=== PATIENT | female | born 1995 | race Caucasian/White ===

== ENCOUNTER 2021-02-08 15:22 | Emergency (ER) | payer OTHER, SELFPAY ==
[2021-02-08 15:28] VITALS: BP 134/90; PULSE 88; RESP 20; TEMP 36.6; O2SAT 100
--- NOTE | 2021-02-08 15:39 | ED.LOWEXIN ---
HPI - Extremity Injury (Lower) General Chief Complaint: Skin/Abscess/Foreign Body Stated Complaint: right big toenail Time Seen by Provider: 02/08/21 15:42 Source: patient Mode of arrival: ambulatory Limitations: no limitations History of Present Illness HPI Narrative: Patient presents with pain to her right great toenail. Patient states 3 days ago she kicked the bed frame and has had pain and discomfort to her toe ever since. Patient has had several surgeries on her toenail and had it removed once by caser up. No deformity slightly tender to touch no drainage. Injury: Right: foot Place: home Severity: mild Relieving factors: nothing Exacerbating factors: nothing Context: direct blow Related Data Allergies Allergy/AdvReac Type Severity Reaction Status Date / Time No Known Allergies Allergy Verified 02/08/21 15:40 Review of Systems Review of Systems: Narrative: CONSTITUTIONAL: Denies fever, chills, or sweats. EYES: Denies visual changes, redness, or discharge. ENT: Denies rhinorrhea, congestion, sore throat, or otalgia. CARDIOVASCULAR: Denies chest pain, palpitations, or edema. RESPIRATORY: Denies cough or dyspnea. GASTROINTESTINAL: Denies abdominal pain, nausea, vomiting, or diarrhea. GENITOURINARY: Denies dysuria or hematuria. SKIN: Denies rash or itching. MUSCULOSKELETAL: Denies back pain, joint pain, or myalgia. NEUROLOGIC: Denies headache, numbness, or weakness. PSYCHIATRIC: Denies anxiety or depression. [facility] Family History Family History (Updated 05/28/14 @ 07:13 by DOCTOR UNKNOWN) Mother Hypertension Social History Social History Smoking status: Never smoker Alcohol intake: never Comments At time of signature, agree with nursing past medical, surgical, social and family history. There is no relevant family history pertinent to the presenting complaint Exam Narrative: Exam Narrative: GENERAL: Well-appearing, well-nourished, and in no acute distress. HEAD: Normocephalic, atraumatic. EYES: PERRLA and EOMI. ENT: Nares clear, no rhinorrhea or epistaxis. Mucous membranes moist. NECK: Supple. CHEST: Clear to auscultation. No respiratory distress. HEART: Regular rate and rhythm. No murmur heard. Normal peripheral pulses. ABDOMEN: Soft, nontender, nondistended, normal active bowel sounds. EXTREMITIES: Normal range of motion. No edema. SKIN: Warm, dry, no rash. sWELLING AND REDNESS AND FLUCTUANCE CONSISTENT WITH PARONYCHIA. NORMAL CAP REFILL. NORMAL SENSATION OF DISTAL TOE. NORMAL 2 POINT DISCRIMINATION. NORMAL MOVEMENT OF TOE AT PIP, DIP, MCP. NORMAL FOOT EXAM. NO STREAKING OR REDNESS INTO FOOT NEURO: No focal deficits. Alert and oriented x3. [place] Coma Scale Eye Opening: Spontaneous 4 [place] Coma Scale Motor: Obeys Commands 6 [place] Coma Scale Verbal: Oriented 5 [place] Coma Scale Total 15 Course Vital Signs Vital signs: Vital Signs Temperature 36.6 C 02/08/21 15:28 Pulse Rate 88 02/08/21 15:28 Respiratory Rate 20 02/08/21 15:28 Blood Pressure 134/90 02/08/21 15:28 Pulse Oximetry 100 02/08/21 15:28 Temperature 36.6 C 02/08/21 15:28 Pulse Rate 88 02/08/21 15:28 Respiratory Rate 20 02/08/21 15:28 Blood Pressure 134/90 02/08/21 15:28 Pulse Oximetry 100 02/08/21 15:28 Please ANTONIO schedule a followup visit with your personal physician for further evaluation and treatment. Including recheck and discussion of your blood pressure. If your symptoms persist, change or worsen significantly before you can contact your personal physician then please, without delay, go to the emergency department for further evaluation MDM - Extremity Injury (Lower) Differential Diagnosis Differential diagnosis: Likely puncture wound of foot and fracture of toe Critical Care Time Critical Care Time Critical Care Time: No Discharge Plan Discharge Clinical Impression: Paronychia of great toe Patient Disposition: Home, Self-Care Condition: Stable Instructions
== END 2021-02-08 15:45 | disposition home or self-care (01) ==
PROVIDERS: Emergency Provider Nurse Practitioner Family
DX: L03.031 Cellulitis of right toe (principal)
CPT/HCPCS: 99213; G0463

== ENCOUNTER 2021-10-08 12:58 | Emergency (ER) | payer OTHER, SELFPAY ==
[2021-10-08 13:17] VITALS: BP 137/79; PULSE 62; RESP 16; TEMP 36.7; O2SAT 99
--- NOTE | 2021-10-08 13:57 | ED.URI ---
HPI - URI/Sore Throat General Chief Complaint: Upper Respiratory Infection Stated Complaint: stomach pain,headache,alis Time Seen by Provider: 10/08/21 13:57 Source: patient and family Mode of arrival: ambulatory History of Present Illness HPI Narrative: Patient presents with a 2-day history of nausea, no emesis. Patient states today she started with a headache and generalized body aches. Patient did have COVID-19 June 2021 . Patient denies any abdominal pain no constipation no diarrhea. Patient states she has several coworkers that are out sick but as far she knows no one is tested positive for pain. MD elicited complaint: sore throat and nasal congestion Relieving factors: nothing Associated symptoms: headache, nasal congestion, sore throat and nausea Treatments prior to arrival: none Related Data Home Medications Medication Instructions Recorded Confirmed albuterol sulfate 2 puff INHALATION Q4-6H PRN 10/08/21 10/08/21 beclomethasone dipropionate [Qvar 2 inh INHALATION BID 10/08/21 10/08/21 RediHaler] famotidine 40 mg PO DAILY 10/08/21 10/08/21 Allergies Allergy/AdvReac Type Severity Reaction Status Date / Time No Known Allergies Allergy Verified 10/08/21 13:42 Review of Systems Review of Systems: CONSTITUTIONAL: Denies chills, or sweats. Reports fever and generalized body aches EYES: Denies visual changes, redness, or discharge. ENT: Denies otalgia. Reports nasal congestion runny nose and sore throat CARDIOVASCULAR: Denies chest pain, palpitations, or edema. RESPIRATORY: Denies dyspnea. Reports occasional cough GASTROINTESTINAL: Denies abdominal pain, nausea, vomiting, or diarrhea. GENITOURINARY: Denies dysuria or hematuria. SKIN: Denies rash or itching. MUSCULOSKELETAL: Denies back pain, joint pain, or myalgia. Reports generalized body aches NEUROLOGIC: Denies headache, numbness, or weakness. PSYCHIATRIC: Denies anxiety or depression. [facility] Family History Family History (Updated 05/28/14 @ 07:13 by DOCTOR UNKNOWN) Mother Hypertension Social History Social History Smoking status: Never smoker Alcohol intake: never Comments At time of signature, agree with nursing past medical, surgical, social and family history. There is no relevant family history pertinent to the presenting complaint Exam Narrative: The patient is a well-developed, well-nourished in no acute distress. SKIN: Skin is warm and dry without erythema, swelling or exudate. There is good turgor. No tenting. HEAD: Atraumatic. Normocephalic. No temporal or scalp tenderness. EYES: Moist and bright. Sclera and conjunctivae normal. No discharge. PERRLA. Extraocular motions intact. Gross visual acuity intact. EARS: Pinna is normal shape and contour. Clear external auditory canals. TM pearly zavala with good cone of light, no erythema or suppuration. Bilateral cerumen noted no gross hearing deficit. NOSE: pink, moist mucosa with good air movement. Clear rhinorrhea without nasal flaring. Septum midline. Mouth: moist mucous membranes. THROAT; mild erythema noted to posterior oropharynx with moderate postnasal drainage. Without exudate or ulceration.. Uvula midline. Normal movement of soft palate. NECK: Supple and nontender with full range of motion without discomfort. No meningeal signs. LUNGS: Equal and bilateral breath sounds without wheezes, rales or rhonchi. CHEST: The chest wall is without retractions or use of accessory muscles. HEART: Has a regular rate and rhythm without murmur, gallops, click or rub. ABDOMEN: Soft, nontender with positive active bowel sounds. No rebound tenderness. EXTREMITIES: Without cyanosis, clubbing or edema. Equal 2+ distal pulses and 2 second capillary refill noted. NEUROLOGIC: alert, active, . The patient moves all extremities with normal muscle strength. Normal muscle tone is noted. Normal coordination is noted. NO focal neurological findings noted. Course Course Level of Care: Express Care Visit
== END 2021-10-08 14:20 | disposition home or self-care (01) ==
PROVIDERS: Emergency Provider Nurse Practitioner Family
DX: R51.9 Headache, unspecified (principal); J06.9 Acute upper respiratory infection, unspecified; J02.9 Acute pharyngitis, unspecified; B34.9 Viral infection, unspecified; R11.0 Nausea; Z20.822 Contact with and (suspected) exposure to COVID-19; Z86.16 Personal history of COVID-19
CPT/HCPCS: 87081; 87804; 87880; 99213; G0463

== ENCOUNTER 2023-05-02 11:44 | Emergency (ER) | payer OTHER, SELFPAY ==
--- NOTE | 2023-05-02 11:47 | ED.URI ---
HPI - URI/Sore Throat General Chief Complaint: Upper Respiratory Infection Stated Complaint: chest heavy / hard to breathe Source: patient and RN notes reviewed Mode of arrival: ambulatory Limitations: no limitations History of Present Illness HPI Narrative: Patient is a 27-year-old who presents to the [facility] with complaints of chest heaviness and tightness starting yesterday. Patient also reports some intermittent wheezing. She denies recent cough, illness, or fever. She reports some mild shortness of breath due to the chest tightness. She reports history of asthma. States that she has not been taking any of her medications for asthma in over 8 months as she ran out and has not made an appointment with her primary. Related Data Allergies Allergy/AdvReac Type Severity Reaction Status Date / Time No Known Allergies Allergy Verified 05/02/23 12:02 Review of Systems Review of Systems: CONSTITUTIONAL: Denies fever, chills, or sweats. EYES: Denies visual changes, redness, or discharge. ENT: Denies otalgia and sore throat CARDIOVASCULAR: Denies chest pain, palpitations, or edema. RESPIRATORY: Reports chest tightness, shortness of breath, and wheezing. Denies cough. GASTROINTESTINAL: Denies abdominal pain, nausea, vomiting, or diarrhea. GENITOURINARY: Denies dysuria or hematuria. SKIN: Denies rash or itching. MUSCULOSKELETAL: Denies back pain, joint pain, or myalgia. NEUROLOGIC: Denies headache, numbness, or weakness. Pertinent positives per HPI. PMFSH Family History Family History Mother Hypertension Social History Social History Smoking status: Never smoker Alcohol intake: never Comments At the time of my signature, I reviewed and agree with the nursing past medical, surgical, social, and family history. There is no relevant family history pertinent to the patient complaint. Exam Narrative: GENERAL: This is a well-nourished, well-developed patient, in no apparent distress. HEAD: normocephalic, atraumatic. EYES: Sclera clear/white. Vision is grossly intact. EARS: External ears normal. Hearing grossly intact. NOSE: External nose normal with no obvious nasal discharge, nares without redness, no rhinorrhea. THROAT: Mucous membranes moist, posterior pharynx clear. NECK: Neck supple, non-tender without lymphadenopathy, masses or thyromegaly. CARDIOVASCULAR: Regular rate and rhythm without murmurs, gallops, or rubs. RESPIRATORY: Decreased breath sounds. Diffuse bilateral wheezing thoroughout. GASTROINTESTINAL: Abdomen soft, non-tender, nondistended. Bowel sounds are active. No hepato-splenomegaly, or palpable masses. No guarding. SKIN: warm, intact with no suspicious lesions or rash, good texture and turgor. NEURO: awake, alert, and oriented to person, place and time. There were no obvious focal neurologic abnormalities. EXTREMITIES: No clubbing, cyanosis, or edema. No joint tenderness, effusion, or edema noted. BACK: Nontender without deformity or crepitance. No flank tenderness. Course Course Level of Care: Express Care Visit Vital Signs Vital signs: Vital Signs Temperature 97.4 F L 05/02/23 11:54 Pulse Rate 69 05/02/23 11:54 Respiratory Rate 20 05/02/23 11:54 Blood Pressure 166/100 H 05/02/23 11:54 Pulse Oximetry 99 05/02/23 11:54 Oxygen Delivery Room Air 05/02/23 11:54 Temperature 97.4 F L 05/02/23 11:54 Pulse Rate 69 05/02/23 11:54 Respiratory Rate 20 05/02/23 11:54 Blood Pressure 166/100 H 05/02/23 11:54 Pulse Oximetry 99 05/02/23 11:54 Oxygen Delivery Room Air 05/02/23 11:54 Reviewed MDM - URI/Sore Throat MDM Narrative Medical decision making narrative: Do not smoke. Avoid smoke of any kind. May use a humidifier in the bedroom. Get plenty of fluids and rest. Take steroids as directed. Use your inhaler every 4-6 hours if needed. F
[2023-05-02 11:54] VITALS: BP 166/100; PULSE 69; RESP 20; TEMP 36.3; O2SAT 99
[2023-05-02] MEDS: ALBUTEROL SULFATE NEB 2.5 MG/3 ML INH INHALATION (12:14)
[2023-05-02] MEDS: IPRATROPIUM BR 0.02% INH SOLN 0.5 MG/2.5 ML VIAL INHALATION (12:14)
== END 2023-05-02 12:45 | disposition home or self-care (01) ==
PROVIDERS: Emergency Provider Nurse Practitioner
DX: J45.21 Mild intermittent asthma with (acute) exacerbation (principal); Z86.16 Personal history of COVID-19
CPT/HCPCS: 94640; 99213; G0463

== ENCOUNTER 2023-11-26 14:12 | Emergency (ER) | payer OTHER, SELFPAY ==
[2023-11-26 14:18] VITALS: BP 134/89; PULSE 68; RESP 20; TEMP 36.9; O2SAT 99
--- NOTE | 2023-11-26 14:31 | ED.GENADULT ---
HPI - General Adult General Chief complaint: Upper Respiratory Infection Stated complaint: Shortness of Breath/Cough/Headache Source: patient, RN notes reviewed and old records reviewed Mode of arrival: ambulatory Limitations: no limitations History of Present Illness HPI narrative: 28-year-old female presents to Express Care with complaint of cough, congestion, rhinorrhea, headache, shortness of breath that started yesterday. Patient states does have asthma and is out of inhaler at this time. But states this does not feel like her asthma. Related Data Home Medications Medication Instructions Recorded Confirmed albuterol sulfate 90 mcg/actuation See Rx Instructions .Route 11/26/23 11/26/23 aerosol inhaler .COMPLEX PRN sob Allergies Allergy/AdvReac Type Severity Reaction Status Date / Time No Known Allergies Allergy Verified 11/26/23 14:39 Review of Systems Constitutional: Constitutional: Reports no additional constitutional complaints, Denies body ache(s), Denies chills, Denies fatigue, Denies fever(s) and Reports headache(s) Eyes: Eyes: Reports no additional eye complaints and Denies blurry vision ENT: Reports system reviewed and no additional complaints, except as documented, Denies vertigo, Denies dizziness, Denies ear discharge, Denies otalgia, Denies facial pain, Denies headache(s), Reports nasal congestion, Reports nasal discharge, Denies sinus pain, Reports sinus pressure and Denies sore throat Cardiovascular: Cardiovascular: Reports no additional cardiovascular complaints, Denies chest pain, Denies chest pain at rest, Denies rapid heart rate and Denies dyspnea Respiratory: Respiratory: Reports no additional respiratory complaints, Reports chest congestion, Reports cough, Denies pain on inspiration, Denies pain with cough and Denies dyspnea Gastrointestinal: Gastrointestinal: Denies abdominal pain, Denies diarrhea, Denies nausea and Denies vomiting Integumentary/Breasts: Skin/Breast: Denies rash Neurologic: Reports system reviewed and no additional complaints, except as documented, Denies vertigo, Denies dizziness and Denies headache(s) Endocrine: Endocrine: Denies fatigue PMFSH Family History Family History Mother Hypertension Social History Social History Smoking status: Never smoker Alcohol intake: never Comments At the time of my signature, I reviewed and agree with the nursing past medical, surgical, social, and family history. There is no relevant family history pertinent to the patient complaint. Exam Const: General: cooperative, healthy appearing, no acute distress and well nourished Nutritional Appearance: well nourished Orientation/consciousness: patient oriented x3 Limitations: no limitations HENMT: Head: normal to inspection and normocephalic Ears: external ears normal Face/Nose/Sinus: Normal nasal mucous membranes and turbinates present, normal facial exam and sinuses nontender Face and sinus: normal facial exam Mouth: Yes Normal oral and palatal mucosa present, Yes oropharynx normal and Yes moist mucous membranes Throat: tonsils normal, uvula midline, normal tonsils, no peritonsillar masses, normal posterior oropharynx, postnasal drainage and no uvular edema Eyes: General: appearance normal, both eyes and all related structures Sclera: sclerae normal Pupils: Equal, round and reactive pupils present Resp: Effort & Inspection: normal respiratory effort, able to speak in complete sentences, no audible wheezes, no cough, no respiratory distress and no retractions Auscultation: clear to auscultation bilaterally, no crackles, no rales, no rhonchi and no wheezes Cardio: Rate: regular rate Rhythm: regular rhythm Skin: General skin exam: normal color and no rashes or lesions noted Neuro: General: patient oriented x3 Cranial nerves: Yes Equal, round and reactive pupils
== END 2023-11-26 14:55 | disposition home or self-care (01) ==
PROVIDERS: Emergency Provider Registered Nurse
DX: J06.9 Acute upper respiratory infection, unspecified (principal); J45.20 Mild intermittent asthma, uncomplicated; Z20.822 Contact with and (suspected) exposure to COVID-19
CPT/HCPCS: 87426; 87804; 99213; G0463

== ENCOUNTER 2025-06-02 15:09 | Emergency (ER) | payer OTHER, SELFPAY ==
--- NOTE | 2025-06-02 15:12 | ED_ITS ---
HPI - Dental/Oral General Chief complaint: Dental/Oral Stated complaint: bubble on gum Time Seen by Provider: 06/02/25 15:12 Source: patient Mode of arrival: ambulatory Limitations: no limitations History of Present Illness HPI Narrative: Phyllis is a 29-year-old female patient presenting to the clinic today with complaints of a a possible dental abscess to the left upper tooth. She reports she noticed swelling and pain over the area for the past 4 days however yesterday she noticed a possible abscess. States the area is mildly fluctuant. Denies any fevers, chills, body aches. Related Data Home Medications ?Medication ?Instructions ?Recorded ?Confirmed ?Last Taken ?Type albuterol sulfate 90 mcg/actuation See Rx Instructions .Route 11/26/23 11/26/23 Unknown History aerosol inhaler .COMPLEX PRN sob ergocalciferol (vitamin D2) 1,250 06/02/25 Unknown H istory mcg (50,000 unit) capsule famotidine 40 mg tablet mg 06/02/25 Unknown History losartan 100 tablet 06/02/25 Unknown His tory mg-hydrochlorothiazide 25 mg tablet metformin 500 mg tablet mg 06/02/25 Unknown History Allergies Allergy/AdvReac Type Severity Reaction Status Date / Time No Known Allergies Allergy Verified 06/02/25 15:24 Review of Systems Review of Systems: Pertinent positives per HPI. Patient denies any fever, chills, rash, headache, visual changes, dizziness, cough, runny nose, sore throat, shortness of breath, chest pain, palpitations, nausea, vomiting, diarrhea, constipation, abdominal pain, or any urinary issues. PMFSH Family History Family History Mother Hypertension Social History Social History Smoking status: Never smoker Alcohol intake: never Comments At the time of my signature, I reviewed and agree with the nursing past medical, surgical, social, and family history. There is no relevant family history pertinent to the patient complaint. Exam Narrative: General: Well-developed, well nourished, in no apparent distress Head: Normocephalic, atraumatic Eyes: Pupils equally round and reactive to light bilaterally, EOM intact, sclera and conjunctive clear, no discharge, lids normal Ears: TMs intact and clear, ear canals clear, no drainage, grossly hearing normal. Nose: Nares patent, no discharge, no inflammation, no sinus tenderness. Mouth: Oropharynx without lesions or masses, poor dentition, MMM. Small dental abscess to the 12. Mildly fluctuant. Neck: Supple, trachea midline, no enlargement of anterior or posterior cervical nodes, no thyroid masses or goiter palpable. Cardio: Regular rate and rhythm, s1 and s2 normal, no murmur appreciated. Resp: Clear to auscultation bilaterally anteriorly and posteriorly, no rhonchi, rales, wheezing or rubs Course Course Emergency Course: Portions of this record may have been created with voice recognition software. Level of Care: Express Care Visit Vital Signs Vital signs: Vital Signs Temperature 36.3 C L 06/02/25 15:16 Pulse Rate 68 06/02/25 15:16 Respiratory Rate 20 06/02/25 15:16 Blood Pressure 135/85 06/02/25 15:16 Pulse Oximetry 100 06/02/25 15:16 Oxygen Delivery Room Air 06/02/25 15:16 Temperature 36.3 C L 06/02/25 15:16 Pulse Rate 68 06/02/25 15:16 Respiratory Rate 20 06/02/25 15:16 Blood Pressure 135/85 06/02/25 15:16 Pulse Oximetry 100 06/02/25 15:16 Oxygen Delivery Room Air 06/02/25 15:16 Vital signs reviewed MDM - Dental/Oral MDM Narrative Medical decision making narrative: At the time of visit patient is resting comfortably on the exam table. Patient appears to be nontoxic. Complaints of a a possible dental abscess to the left upper tooth. She reports she noticed swelling and pain over the area for the past 4 days however yesterday she noticed a possible abscess. States the area is mildly fluctuant. Denies any fevers, chills, body aches. On exam patient has a very small abscess to the left upper tooth number 12. Offer to drain dental abscess and patient declined. Plan: I suspect patient has a dental abscess. Prescription for Augmentin was sent to the pharmacy. Supportive measures were discussed with the patient and they voiced understanding discharge instructions and agrees to treatment plan. Return precautions reviewed Differential Diagnosis Differential diagnosis: Likely gingival abscess, dental caries, toothache, dental abscess, fracture of tooth and aphthous ulcer Discharge Plan Discharge Clinical Impression: Dental abscess Patient Disposition: Home Condition: Stable Instructions: Antibiotic Form, Dental Abscess (ED) Additional Instructions: Take medications as prescribed-Augmentin Increase fluids and stay well hydrated May take Tylenol/Motrin as needed for pain or fever May apply Orajel to the affected area to help alleviate pain May apply warm or cool compress to the affected area to help alleviate pain Follow-up with your dentist as soon as possible Patient Language: German Prescriptions: New amoxicillin-pot clavulanate 875-125 mg tablet 1 tablet PO Q12H 10 Days Qty: 20 0RF No Action albuterol sulfate 90 mcg/actuation HFA aerosol inhaler See Rx Instructions .ROUTE .COMPLEX PRN (Reason: sob) Rx Instructions: as prescribed albuterol sulfate 90 mcg/actuation HFA aerosol inhaler 2 puff inhalation Q4-6H PRN (Reason: shortness of breath or wheezing) Qty: 8.5 0RF metformin 500 mg tablet famotidine 40 mg tablet losartan-hydrochlorothiazide 100-25 mg tablet ergocalciferol (vitamin D2) 1,250 mcg (50,000 unit) capsule Follow-up/Referrals: UNKNOWN,DOCTOR [Non-Staff] Time of Disposition: 15:34 Quality NIHSS Nursing Documentation ED NIHSS nursing documentation: reviewed/agree
[2025-06-02 15:16] VITALS: BP 135/85; PULSE 68; RESP 20; TEMP 36.3; O2SAT 100
--- OUTSIDE RECORDS SUMMARY | 2025-06-02 15:19 | XMS_ITS | Clinical Summary ---
Author Organization [facility] Address [address] [place] [address] Phone Care Team Providers Care Treating Machine Operator Name Role Phone Edwar Benavides APRN, FAMILY COACH Primary Care Pr ovider Clive Tilley MD Unavailable Allergies No known active allergies Medications albuterol 108 (90 Base) MCG/ACT Aerosol SolutionIndicatio ns:Moderate persistent asthma without complication take 2 Puffs by inhalation every 6 hours as needed for Wheezing. 18 g 5 4 Active famotidine (Pepcid) 40 MG TabletIndications :Gastroesophageal reflux disease without esophagitis Take 1 Tablet by mouth every evening. 90 Tablet 3 4 Active fluticasone (Flovent HFA) 110 MCG/ACT AerosolIndication s:Moderate persistent asthma without complication take 2 Puffs by inhalation 2 times daily. 12 g 5 4 Active losartan potassium-hydroch lorothiazide (HYZAAR) 100-25 MG TabletIndications :Primary hypertension Take 1 Tablet by mouth daily. 90 Tablet 3 5 Active metFORMIN (GLUCOPHAGE) 500 MG TabletIndications :Moderate persistent asthma without complication Take 1 Tablet by mouth 2 times daily (with meals). 180 Tablet 3 5 Active ergocalciferol (VITAMIN D) 20899 UNIT CapsuleIndication s:Vitamin D insufficiency Take 1 Capsule by mouth once a week. 12 Capsule Active Active Problems Problem Noted Date Diagnosed Date Psoriasis 03/19/2025 Periumbilical hernia 03/16/2025 PCOS (polycystic ovarian syndrome) 02/05/2025 Vitamin D insufficiency 01/29/2025 Primary hypertension 12/04/2024 GERD (gastroesophageal reflux disease) Morbid obesity with BMI of 50.0-59.9, adult 06/03 Asthma 06/30/2021 COVID-19 virus infection 06/30/2021 Acquired stenosis of both external ear canals Resolved Problems Problem Noted Date Diagnosed Date Resolved Date Acute respiratory failure with hypoxia 06/30/2021 07/02/2021 Impacted cerumen, bilateral 04/15/2019 04/15/2019 Encounters Date Type Department Care Team Description 03/20/2025 9:15 AM CDT Office Visit [facility] General Surgery [facility] [address] [address] Edwar Benavides APRN, CNP Sanz, Alejandro Federico, MD Ventral hernia without obstruction or gangrene (Primary Dx); Periumbilical hernia Discharge Disposition: Discharged to home or Selfcare 03/19/2025 2:45 PM CDT Office Visit [facility] Family Medicine [facility] [address] [place] [address] Edwar Benavides APRN, CNP Primary hypertension (Primary Dx); PCOS (polycystic ovarian syndrome) Discharge Disposition: Discharged to home or Selfcare 03/19/2025 Travel 03/17/2025 Refill [facility] [address] [place] [address] Edwar Benavides APRN, CNP Medication Refill 03/05/2025 1:31 PM CDT - 03/05/2025 11:59 PM CDT [facility] [address] [place] [address] Ewdar Benavides APRN, OSEI Discharge Disposition: Discharged to home or Selfcare 03/05/2025 Results Follow-Up [facility] [address] [place] [address] Edwar Benavides APRN, OSEI VITAMIN D, 25 HYDROXY TOTAL, BASIC METABOLIC PANEL W/ CALCIUM TOTAL, CT ABDOMEN PELVIS W/ CONTRAST 03/05/2025 Travel from Last 3 Months Immunizations Immunization Administration Dates Next Due DTAP VACCINE 05/25/1999 DTP Vaccine 02/08/1994,1993 DTP-Hib 11/01/1994,04/27/1994 Hepatitis B Vaccine, Pediatric/adolescent 04/27/1994,1993,1993 Hib Vaccine,unspecified Formulation 01/09/1994,0 1993 Influenza Vaccine, Quadrivalent, PF 09/07/2021,0 06/20/2019 MMR Vaccine 05/25/1999,09/12/1994 OPV 05/25/1999, 4,01/09/1994,1993 TDAP Vaccine 03/02/2021,06/01/2009 Varicella Vaccine Live 06/01/2009,05/26/1998 Family History Medical History Relation Name Comments No Known Problems Brother Hypertension Father Diabetes Mother Hypertension Mother No Known Problems Sister Relation Name Status Comments Brother Alive Father Mother Alive Sister Alive Social History Tobacco Use Types Packs/Day Years Used Date Smoking Tobacco: Never Smokeless Tobacco: Never Tobacco Cessation:Counseling Given: No Alcohol Use Standard Drinks/Week Comments No 0 (1 standard drink = 0.6 oz pur e alcohol) PHQ-2 Answer Date Recorded Total Score - Questions 1-9 0 03/2025 AUDIT-C Answer Date Recorded Q1: How often do you have a drink containing alcohol? Never 03/20/2025 Q2: How many drinks containi ng alcohol do you have on a typical day when you are drinking? Patient does not drink Q3: How often do you have si x or more drinks on one occasion? Never 03/20/2025 Comments No Sex and Gender Information Value Date Recorded Sex Assigned at Not on file Legal Sex Female 12:27 AM CDT Gender Identity Not on file Sexual Orientation Not on file Last Filed Vital Signs Vital Sign Reading Time Taken Comments Blood Pressure 134/88 03/20/2025 9:05 AM CDT Pulse 77 03/20/2025 9:05 AM CDT Temperature 36.1 C (97 F) 03/20/2025 9:05 AM CDT Respiratory Rate 16 03/19/2025 2:08 PM CDT Oxygen Saturation 98% 03/20/2025 9:05 AM CDT Inhaled Oxygen Concentration - - Weight 148.8 kg (328 lb) 03/20/2025 9:05 AM CDT Height 157.5 cm (5' 2) 03/20/2025 9:05 AM CDT Body Mass Index 59.99 03/20/2025 9:05 AM CDT Plan of Treatment Upcoming Encounters Date Type Department Care Team (Late st Contact Info) Description 09/18/2025 2:45 PM ELECTRICIAN THIRD Office Visit [facility] [address] [place] [address] Edwar Benavides, HORSE BREEDER, FAMILY COACH [address] [address] Health Maintenance Due Date Last Done Comments Hepatitis C Virus (HCV) Screening 1993 Pneumococcal Immunization Combined (1 of 2 - PCV) 2012 Human Papillomavirus (HPV) Immunization (1 - 3-dose SCDM series) 2020 Pap Smear 05/06/2021 05/06/2018 Cervical Cancer Screening (CCS) 2023 HPV/Cotest 2023 Influenza Immunization (#1) 2025 09/07/2021, 0 06/20/2019 SARS-COV-2 Immunization ( - season) 2025 DTaP/Tdap/Td Immunization (8 - Td or Tdap) 03/02/2031 03/02/2021, 06/01/2009, 05/25/1999, Additional history exists Respiratory Syncytial Virus (RSV) Immunization (Adult) (1 - 1-dose 75+ series) 2068 Hepatitis B Immunization Completed 994, 1993, 1993 TdaP Immunization Discontinued 03/02/2021, 06/01/2009 Meningococcal Immunization (ACWY) Aged Out No longer eligible based on patient's age to complete this topic Rotavirus Immunization Aged Out No lo nger eligible based on patient's age to complete this topic Procedures Procedure Name Priority Date/Time Associated Diagnosis Comments CT ABDOMEN PELVIS W/ CONTRAST Routine 03/05/2025 2:27 PM CDT Abdominal mass of other site POCT CREATININE Routine 03/05/2025 2:16 PM CDT BASIC METABOLIC PANEL W/ CALCIUM TOTAL Routine 03/05/2025 1:48 PM CDT Primary hypertension VITAMIN D, 25 HYDROXY TOTAL Routine 03/05/2025 1:48 PM CDT Vitamin D insufficiency PATHOLOGY CYTOLOGY FOREMAN/PILE DRIVING AND ERECTION 05/06/2018 12:00 AM CDT from Last 3 Months or Most Recently Relevant to Health Maintenance Results * CT ABDOMEN PELVIS W/ CONTRAST (03/05/2025 2:27 PM CDT) Anatomical Region Laterality Modality Abdomen N/A Computed Tomogra phy 03/14/2025 7:07 PM CDT Impressions 03/14/2025 7:09 PM CDT IMPRESSION: 7.9 cm x 5.9 cm periumbilical hernia containing only fat. Narrative 03/14/2025 7:09 PM CDT EXAM DESCRIPTION: CT ABDOMEN PELVIS W/ CONTRAST REASON FOR STUDY: midline abdominal mass, suspect ventral hernia, swelling and pain x 2 months. Hx THN TECHNIQUE: CT scan of the abdomen and pelvis performed with intravenous and without oral contrast using helical scanning technique with dynamic intravenous contrast injection. Reconstructed coronal and sagittal MPR images reviewed. All images stored on PACS. Automated exposure control was used as a dose optimization technique for this examination. CONTRAST TYPE/DOSE: 124mL of IOPAMIDOL 76 % IV SOLN injected via Intravenous COMPARISON: 06/04/2016 FINDINGS: LOWER CHEST: No significant pulmonary abnormalities. No effusion. LIVER: Normal size. No identified cystic or solid masses. GALLBLADDER: No stones identified. No wall thickening or inflammatory changes. BILE DUCTS: No intrahepatic or extrahepatic ductal dilatation. SPLEEN: Normal size. No focal lesions. PANCREAS: No identified cystic or solid masses. No significant calcifications. No adjacent inflammation or peripancreatic fluid collections. Pancreatic duct not dilated. ADRENALS: Normal. KIDNEYS/URINARY TRACT: No identified significant cystic or solid masses. No visualized stones. No hydronephrosis or hydroureter. Symmetric enhancement. Urinary bladder is unremarkable. GI: No dilated bowel loops. No obvious wall thickening. Normal appendix. No significant diverticular disease. PERITONEUM: No ascites or free air. RETROPERITONEUM: No mass or adenopathy. REPRODUCTIVE: No significant abnormality. VASCULATURE: No abdominal aortic aneurysm. MUSCULOSKELETAL: No significant abnormality. OTHER: 7.9 cm x 5.9 cm periumbilical hernia containing only fat. THIS IS AN ELECTRONICALLY VERIFIED FINAL REPORT 03/14/2025 7:07 PM - Electronically signed by Jamie Cash M.D. KT: TONO Report ID: [id number] Reading Location: [place] [address] Procedure Note Jamie Cash MD - 03/14/2025 EXAM DESCRIPTION: CT ABDOMEN PELVIS W/ CONTRAST REASON FOR STUDY: midline abdominal mass, suspect ventral hernia, swelling and pain x 2 months. Hx THN TECHNIQUE: CT scan of the abdomen and pelvis performed with intravenous and without oral contrast using helical scanning technique with dynamic intravenous contrast injection. Reconstructed coronal and sagittal MPR images reviewed. All images stored on PACS. Automated exposure control was used as a dose optimization technique for this examination. CONTRAST TYPE/DOSE: 124mL of IOPAMIDOL 76 % IV SOLN injected via Intravenous COMPARISON: 06/04/2016 FINDINGS: LOWER CHEST: No significant pulmonary abnormalities. No effusion. LIVER: Normal size. No identified cystic or solid masses. GALLBLADDER: No stones identified. No wall thickening or inflammatory changes. BILE DUCTS: No intrahepatic or extrahepatic ductal dilatation. SPLEEN: Normal size. No focal lesions. PANCREAS: No identified cystic or solid masses. No significant calcifications. No adjacent inflammation or peripancreatic fluid collections. Pancreatic duct not dilated. ADRENALS: Normal. KIDNEYS/URINARY TRACT: No identified significant cystic or solid masses. No visualized stones. No hydronephrosis or hydroureter. Symmetric enhancement. Urinary bladder is unremarkable. GI: No dilated bowel loops. No obvious wall thickening. Normal appendix. No significant diverticular disease. PERITONEUM: No ascites or free air. RETROPERITONEUM: No mass or adenopathy. REPRODUCTIVE: No significant abnormality. VASCULATURE: No abdominal aortic aneurysm. MUSCULOSKELETAL: No significant abnormality. OTHER: 7.9 cm x 5.9 cm periumbilical hernia containing only fat. THIS IS AN ELECTRONICALLY VERIFIED FINAL REPORT 03/14/2025 7:07 PM - Electronically signed by Jamie Cash M.D. KT: KT Report ID: [id number] Reading Location: [id number] IMPRESSION: 7.9 cm x 5.9 cm periumbilical hernia containing only fat. us Edwar Benavides APRN, CNP IMG CT ORDERABLE S Final Result * POCT Creatinine (03/05/2025 2:16 PM CDT) Pathologist [facility] CREATININE - POCT 0.8 0.6 - 1.3 mg/dL 03/05/2025 2:19 PM CDT [facility] Blood 03/05/2025 2:16 PM CDT 03/05/2025 2:18 PM CDT None Provider POINT OF CARE TESTING Final Resu lt [facility] [address] [place] [address] * VITAMIN D, 25 HYDROXY TOTAL (03/05/2025 1:48 PM CDT) VITAMIN D, 25 HYDROX 19.7 ng/mL 03/05/2025 4:11 PM CDT [facility] Blood Venipuncture / Unknown 03/05/2025 1:48 PM CDT 03/05/2025 3:27 PM CDT Narrative [facility] - 03/05/2025 4:11 PM CDT Published reference ranges for Vitamin D vary depending on time and place and method of testing, and on patient's age, sex, ethnicity and levels of other measured analytes such as parathormone, calcium and phosphorus. The result should be evaluated in conjunction with clinical findings and suspicions. [place] of [employer] and Endocrine Clinical Practice Guidelines: Status Vitamin D levels (ng/mL) Deficient <=20 At risk of inadequacy 21-29 Sufficient 30-100 Centers of Disease Control and Prevention Guidelines: Status Vitamin D levels (ng/mL) Deficient <13 At risk of inadequacy 13-19 Sufficient 20-50 Possibly harmful >50 References: [place] [employer], 2010 Dietary reference intakes for calcium and vitamin D. [place]: The National Academies Press. Mariely M, Dilip N, Syed NUNN, et al., Evaluation, treatment, and prevention of Vitamin D deficiency: an Endocrinology Clinical Practice Guideline. JCEM 2011 96: 7 4616-5985. Maryann A, Chung C, Flaquita D, et al., Vitamin D Status: [place], 8107-7614, [facility] data brief, no. 59, MD [place]: National Center for Health Statistics. 2011. us Edwar Benavides APRN, FAMILY COACH CHEMISTRY ORDERA BLES Final Result [facility] [address] [place] [address] * (ABNORMAL) BASIC METABOLIC PANEL W/ CALCIUM TOTAL (03/05/2025 1:48 PM CDT) SODIUM 140 136 - 145 mmol/L 03/05/2025 3:52 PM CDT [facility] POTASSIUM 4.5 3.5 - 5.1 mmol/L 03/05/2025 3:52 PM CDT [facility] CHLORIDE 106 98 - 107 mmol/L 03/05/2025 3:52 PM CDT [facility] CO2, VENOUS 24 22 - 30 mmol/L 03/05/2025 3:52 PM CDT [facility] ANION GAP 14.5 <18.0 mmol/L 03/05/2025 3:52 PM CDT [facility] GLUCOSE 84 70 - 99 mg/dL 03/05/2025 3:52 PM CDT [facility] BUN 17 5 - 18 mg/dL 03/05/2025 3:52 PM CDT [facility] CREATININE, BLOOD 0.69 0.60 - 1.00 mg/dL 03/05/2025 3:52 PM CDT [facility] BUN/CREATININE RATIO 25(H) 12 - 20 ratio 03/05/2025 3:52 PM CDT [facility] CALCIUM 9.1 8.7 - 10.5 mg/dL 03/05/2025 3:52 PM CDT [facility] IS THE PATIENT REQUIRED TO BE FASTING? No 03/05/2025 3:52 PM CDT [facility] GFR, ESTIMATED >60 >=60 03/05/2025 3:52 PM CDT [facility] Comment: Creatinine Clearance is the preferred criteria for selecting drug dose adjustments in renally impaired patients. The GFR is provided as additional pertinent clinical information. GFR is reported in mL/min/1.73 sq m. Calculation based on the Chronic Kidney Disease Epidemiology Collaboration (CKD- EPI) equation refit without adjustment for race. GFR, EST. >60 >=60 025 3:52 PM CDT [facility] GFR, EST. NONAFRICAN >60 >=60 03/05/2025 3:52 PM CDT [facility] Blood Venipuncture / Unknown 03/05/2025 1:48 PM CDT 03/05/2025 3:27 PM CDT us Edwar Benavides APRN, FAMILY COACH CHEMISTRY ORDERA BLES Final Result [facility] [address] [place] [address] * PATHOLOGY CYTOLOGY FOREMAN/PILE DRIVING AND ERECTION (05/06/2018 12:00 AM CDT) 05/06/2018 us Provider Scan PATHOLOGY/CYTOLOGY ORDERABLES Fi nal Result [facility] NON-INTERFACED REFERENCE LABORATORIES from Last 3 Months or Most Recently Relevant to Health Maintenance Insurance MEDICAID [place] Advance Directives * Full Code (Latest Code Status on File) Date Activated Date Inactivated Comments 06/30/2021 9:28 PM 07/02/2021 3:01 PM CPR-Full Danie atment: FULL ARREST: Attempt Resuscitation/CPR wit intubation and mechanical ventilation. PRE-ARREST: Use entire range of life support measures to stabilize the patient. Care Teams Treating Machine Operator Relationship Specialty Start Date End Date Edwar Benavides APRN, FAMILY COACH #2 [facility] [address] [place] [address] PCP - General Advanced Practice Nurse 09/22/24 Clive Tilley MD #2 [facility] [address] [place] [address] Consulting Physician General Surgery 03/20/25
--- OUTSIDE RECORDS SUMMARY | 2025-06-02 15:19 | XMS_ITS | Clinical Summary ---
Author Organization [facility] Address [address] [place] [address] Care Team Providers Care Radiologic Technology Instructor Name Role Phone Edwar Benavides APRN-CHIEF DESIGN BRANCH Primary Care Pro vider Source Comments [facility],non-owned Affiliates and Associated Physician Practices is amultiple site organization consisting of ambulatory clinics and hospital sitesin [place], [place], [place]. This disclosure is being madepursuant to the Care Everywhere program and may not contain all information available regarding this patient. Last updated 18.[facility] Allergies No known active allergies Medications * Be aware that medications may not be up to date on this document. Alwaysverify current medications with the patient. albuterol HFA (Proventil; Ventolin; Proair) 108 (90 Base) MCG/ACT inhaler Inhale 2 (two) puffs by mouth every 6 hours as needed 4 Active famotidine (Pepcid) 40 MG tablet Take 1 (one) tablet by mouth every evening Active fluticasone hfa 110 (Flovent HFA 110) 110 MCG/ACT inhaler Inhale 2 (two) puffs by mouth 2 times daily 4 Active losartan-hydro CHLOROthiazide (Hyzaar) 100-25 MG tablet Take 1 (one) tablet by mouth once daily 5 Active metFORMIN (Glucophage) 500 MG tablet Take 1 (one) tablet by mouth 2 times daily with morning and evening meal 5 Active vitamin D, ergocalciferol , (Drisdol) 1.25 MG (96538 UT) capsuleIndicat ions:Vitamin D Deficiency Take 1 (one) capsule by mouth every 7 days (once a week) Reasons: Vitamin D Deficiency 4 capsule 3 5 Active folic acid 400 MCG tablet Take 2 (two) tablets by mouth once daily Active ibuprofen (IBU) 400 MG tablet Take 400 mg by mouth every 6 hours as needed. 05/29/20 Discontinu ed(List Clean-Up) Cholecalcifero l (Vitamin D3) 10 MCG (400 UNIT) 05/29/20 Discontinu ed(List Clean-Up) Active Problems Problem Noted Date Diagnosed Date Ingrown right big toenail 05/21/2012 Fascial hernia 01/02/2012 Encounters Date Type Department Care Team Description 05/29/2025 2:00 PM CDT Office Visit [facility] [address] [place] [phone] Asiya Fuentes, TRAIL MAINTENANCE WORKER-CHIEF DESIGN BRANCH Morbid obesity (HCC) (Primary Dx); Folate deficiency; Vitamin D deficiency; Sleep apnea, unspecified type; Hypertension, unspecified type; Gastroesophageal reflux disease, unspecified whether esophagitis present 05/29/2025 1:00 PM CDT Office Visit [facility] [address] [place] [phone] Morbid obesity (HCC) (Primar y Dx) 05/20/2025 11:22 AM CDT Anesthesia Event [facility] Op [address] [place] [address] Babatunde Beavers MD 05/20/2025 10:55 AM CDT - 05/20/2025 11:21 AM CDT Surgery [facility] Op [address] [place] [address] Elizabeth Gonzales MD ESOPHAGOGASTRODUODENOSCOPY WITH BIOPSY 05/20/2025 8:50 AM CDT - 05/20/2025 12:49 PM CDT Hospital Encounter [facility] Op [address] [place] [address] Elizabeth Gonzales MD Surgery General Discharge Disposition: Home or Self Care 05/20/2025 Travel 05/13/2025 Travel 05/05/2025 11:00 AM CDT Office Visit [facility] [address] [place] [phone] Encounter for pre-surgical psychological assessment (Primary Dx); Morbid obesity (HCC); Pre-op evaluation 05/05/2025 10:30 AM CDT Office Visit [facility] [address] [place] [phone] Morbid obesity (HCC) (Primar y Dx) 04/16/2025 4:00 PM CDT Video Visit [facility] [address] [place] [phone] Morbid obesity (HCC) 04/10/2025 Results Follow-Up [facility] [address] [place] [phone] Hayley Arteaga APRN-CHIEF DESIGN BRANCH 04/09/2025 3:15 PM CDT - 04/11/2025 11:59 PM CDT Hospital Encounter [facility] - Cardiology [address] [place] [phone] Hayley Arteaga, TRAIL MAINTENANCE WORKER-CHIEF DESIGN BRANCH Discharge Disposition: Home or Self Care 04/09/2025 3:13 PM CDT - 04/09/2025 3:14 PM CDT Hospital Encounter [facility] [address] [place] [address] Hayley Arteaga, TRAIL MAINTENANCE WORKER-CHIEF DESIGN BRANCH Discharge Disposition: Home or Self Care 04/09/2025 3:00 PM CDT - 04/09/2025 3:12 PM CDT Hospital Encounter [facility] [address] [place] [address] Hayley Artaega, TRAIL MAINTENANCE WORKER-CHIEF DESIGN BRANCH Discharge Disposition: Home or Self Care 04/09/2025 1:00 PM CDT Office Visit [facility] [address] [place] [phone] Elizabeth Gonzales MD Morbid obesity due to excess calories (HCC) (Primary Dx) 04/09/2025 Orders Only [facility] [address] [place] [phone] Hayley Arteaga, TRAIL MAINTENANCE WORKER-CHIEF DESIGN BRANCH Morbid obesity (HCC) ; Pre-op evaluation; Sleep apnea, unspecified type; Hypertension, unspecified type; Gastroesophageal reflux disease, unspecified whether esophagitis present 03/03/2025 Telephone [facility] [address] [place] [phone] Elizabeth Gonzales MD Appointment from Last 3 Months Family History Medical History Relation Name Comments Cancer Father Diabetes; unknown type Mother Anesthesia Reaction Neg Hx Relation Name Status Comments Father Mother Social History Tobacco Use Types Packs/Day Years Used Date Smoking Tobacco: Never Smokeless Tobacco: Never Tobacco Cessation:Counseling Given: Not Answered Alcohol Use Standard Drinks/Week Comments No 0 (1 standard drink = 0.6 oz pur e alcohol) PHQ-2 Answer Date Recorded Patient Health Questionnaire-2 Score 0 05/29/2025 Comments No Sex and Gender Information Value Date Recorded Sex Assigned at Not on file Legal Sex Female 1:08 PM ASSESSMENT TECHNICIAN Gender Identity Not on file Sexual Orientation Not on file Last Filed Vital Signs Vital Sign Reading Time Taken Comments Blood Pressure 122/80 05/29/2025 1:00 PM CDT Pulse 66 05/29/2025 1:00 PM CDT Temperature 36.9 C (98.5 F) 05/29/2025 1:00 PM CDT Respiratory Rate 16 05/29/2025 1:00 PM CDT Oxygen Saturation 99% 05/29/2025 1:00 PM CDT Inhaled Oxygen Concentration - - Weight 147.5 kg (325 lb 1.6 oz) 05/29/2025 1:00 PM CDT Height 157.5 cm (5' 2) 05/29/2025 1:00 PM CDT Body Mass Index 59.46 05/29/2025 1:00 PM CDT Plan of Treatment Upcoming Encounters Date Type Department Care Team (Late st Contact Info) Description 06/18/2025 1:15 PM CDT Office Visit [facility] [address] [place] [phone] Elizabeth Gonzales MD [address] [place] [phone] 06/19/2025 12:30 PM CDT Video Visit [facility] [address] [place] [phone] Health Maintenance Due Date Last Done Comments HIV SCREENING 2008 HEPATITIS C SCREENING 08/18/2011 DTAP/TDAP/TD VACCINES (1 - Tdap) 2012 HEPATITIS B VACCINE (1 of 3 - 19+ 3-dose series) 2012 HPV VACCINE (1 - 3-dose SCDM series) 2020 PAP SMEAR 05/06/2021 05/06/2018 COVID-19 VACCINE (1 - 2023-2 5 season) 2025 INFLUENZA VACCINE (#1) 2025 , 06/20/2019 ZOSTER VACCINE (1 of 2) 2043 DEPRESSION SCREENING Completed 04/09/2025 HIB VACCINE Aged Out No longer eligi ble based on patient's age to complete this topic MENINGOCOCCAL (Group B) VACCINE SHARED DECISION-MAKING Aged Out No longer eligible based on patient's age to complete this topic MENINGOCOCCAL GROUPS A/C/Y/W VACCINE Aged Out No longer eligible b ased on patient's age to complete this topic PNEUMOCOCCAL VACCINE Aged Out No long er eligible based on patient's age to complete this topic Procedures Procedure Name Priority Date/Time Associated Diagnosis Comments CARDIAC RHYTHM STRIP ORDER 05/21/2025 2:22 PM CDT GROSS + MICRO EXAM (ILL) Routine 05/20/2025 11:35 AM CDT Gastroesophageal reflux disease, unspecified whether esophagitis present ND EGD FLEX TRANSORAL W BX SNGL OR MULT 05/20/2025 11:17 AM CDT Gastroesophageal reflux disease, unspecified whether esophagitis present Special Needs ARRIVAL TIME:0845 HCG URINE QUALITATIVE Pre-Op 05/20/2025 9:13 AM CDT Pre-op testing EKG 12-LEAD Routine 04/09/2025 3:33 PM CDT Morbid obesity (HCC) Pre-op evaluation Sleep apnea, unspecified type Hypertension, unspecified type XR CHEST 2VW Routine 04/09/2025 3:19 PM CDT Morbid obesity (HCC) Pre-op evaluation Sleep apnea, unspecified type Hypertension, unspecified type CBC W AUTO DIFFERENTIAL Routine 04/09/2025 3:02 PM CDT Morbid obesity (HCC) Pre-op evaluation Gastroesophageal reflux disease, unspecified whether esophagitis present COMPREHENSIVE METABOLIC PANEL Routine 04/09/2025 3:02 PM CDT Morbid obesity (HCC) Pre-op evaluation FERRITIN Routine 04/09/2025 3:02 PM CDT Morbid obesity (HCC) Pre-op evaluation Gastroesophageal reflux disease, unspecified whether esophagitis present HEMOGLOBIN A1C Routine 04/09/2025 3:02 PM CDT Morbid obesity (HCC) Pre-op evaluation LIPID PROFILE Routine 04/09/2025 3:02 PM CDT Morbid obesity (HCC) Pre-op evaluation MAGNESIUM BLOOD Routine 04/09/2025 3:02 PM CDT Morbid obesity (HCC) Pre-op evaluation VITAMIN D 25-HYDROXY Routine 04/09/2025 3:02 PM CDT Morbid obesity (HCC) Pre-op evaluation VITAMIN B12 FOLATE PANEL Routine 04/09/2025 3:02 PM CDT Morbid obesity (HCC) Pre-op evaluation Gastroesophageal reflux disease, unspecified whether esophagitis present VITAMIN B1 Routine 04/09/2025 3:02 PM CDT Morbid obesity (HCC) Pre-op evaluation TSH Routine 04/09/2025 3:02 PM CDT Morbid obesity (HCC) Pre-op evaluation PTH INTACT+CALCIUM Routine 04/09/2025 3: 02 PM CDT Morbid obesity (HCC) Pre-op evaluation PT PTT PANEL Routine 04/09/2025 3:02 PM CDT Morbid obesity (HCC) Pre-op evaluation IRON + TRANSFERRIN PANEL Routine 04/09/2025 3:02 PM CDT Morbid obesity (HCC) Pre-op evaluation Gastroesophageal reflux disease, unspecified whether esophagitis present from Last 3 Months Results * CARDIAC RHYTHM STRIP ORDER (05/21/2025 2:22 PM CDT) Narrative 05/21/2025 2:22 PM CDT Ordered by an unspecified provider. us Scanned Document CARDIAC SERVICES ORDERABLES Fin al Result * GROSS + MICRO EXAM (ILL) (05/20/2025 11:35 AM CDT) Case Report Surgical Pathology Report Case: [id number] Authorizing Provider: Elizabeth Gonzales MD Collected: 05/20/2025 11:35 AM Ordering Location: [facility] Received: 05/21/2025 10:13 AM Hospital - Ro Op Pathologist: Justino Jerry MD Specimen: Gastric Biopsy, Antrum biopsy to rule out h. pylori 05/26/2025 6:20 AM CDT [facility] Final Diagnosis Gastric biopsies, antrum: - Chronic gastritis, negative for Helicobacter (see comment). Comment: Helicobacter pylori IHC stain is negative for Helicobacter organisms. 05/26/2025 6:20 AM CDT [facility] at 0620 CDT Microscopic Description and Comment Microscopic examination is performed and substantiates the above diagnosis. 05/26/2025 6:20 AM CDT [facility] Gross Description A. The requisition and specimen(s) are identified with the patient's name (Phyllis N White), MRN, and . Received in formalin labeled antrum biopsy to rule out H. Pylori, are 2 blood-pink soft tissue fragments, 0.2 and 0.3 cm in greatest dimension. The specimen is submitted in toto in cassette A1. AW 05/26/2025 6:20 AM CDT [facility] Pathologist Location at [facility] 05/26/2025 6:20 AM CDT [facility] Disclaimer The performance characteristics of all immunohistochemical and indirect immunofluorescence stains (if any) cited in this report were determined by the Histopathology Laboratory of [facility]. Some of these tests were developed by our own laboratory and have not been cleared or approved by the US Food and Drug Administration. The FDA does not require this test to go through premarket FDA review. These tests are used for clinical purposes. They should not be regarded as investigational or for research. This laboratory is certified under the Clinical Laboratory Improvement Amendments (CLIA) as qualified to perform high complexity clinical laboratory testing. H&E slides and special stains prepared at [facility], [place]. [address] (CLIA# [id number]) unless otherwise specified. This case was interpreted by the [facility] Department of Pathology. When applicable, select reference laboratory testing is performed at the [facility], [address] [place] [address]. 05/26/2025 6:20 AM CDT [facility] Embedded Images 05/26/2025 6:20 AM CDT [facility] Pathology/Cytology GASTRIC BIOPSY SPECIMEN / Unknown 05/20/2025 11:35 AM CDT 05/21/2025 10:13 AM CDT Comment:Pre-op diagnosis: Gastroesophageal reflux disease, unspecified whether esophagitis present [K21.9] us Elizabeth Gonzales MD LAB - PATHOLOGY/CYTOLOGY ORDERABLES Final Result [facility] [address] [place] [address] * HCG URINE QUALITATIVE (05/20/2025 9:13 AM CDT) hCG Qualitative Urine Negative Negative 05/20/2025 9:22 AM CDT [facility] Specific Geraldine UA 1.022 1.005 - 1.030 05/20/2025 9:22 AM CDT [facility] Urine URINE / Unknown Collection / Unknown 05/20/2025 9:13 AM CDT 05/20/2025 9:16 AM CDT us Elizabeth Gonzales MD LAB - URINALYSIS ORDERAB LES Final Result [facility] [address] * EKG 12-Lead (04/09/2025 3:33 PM CDT) Pathologist [facility] Ventricular Rate 63 BPM [facility] Atrial Rate 63 BPM [facility] P-R Interval 146 ms [facility] QRS Duration ms 78 ms [facility] Q-T Interval ms 408 ms [facility] QTC Calculation (Bezet) 417 ms [facility] Calculated P [place] 31 degrees [facility] MUSE Calculated R [place] 24 degrees [facility] Calculated T [place] 59 degrees [facility] Interpretation EKG NORMAL SINUS RHYTHM LOW VOLTAGE QRS BORDERLINE ECG NO PREVIOUS ECGS AVAILABLE Confirmed by MADISON WAITE MD ([id number]) on 04/10/2025 6:38:40 PM [facility] 04/09/2025 3:33 PM CDT 04/10/2025 6:38 PM CDT us Hayley Arteaga TRAIL MAINTENANCE WORKER-CHIEF DESIGN BRANCH ECG ORDERABLES Edited R esult - Final [facility] * XR Chest 2Vw (04/09/2025 3:19 PM CDT) Anatomical Region Laterality Modality Chest Computed Radiogr aphy 04/09/2025 3:24 PM CDT Impressions 04/09/2025 3:25 PM CDT IMPRESSION: NO RADIOGRAPHIC EVIDENCE OF ACTIVE CARDIAC/PULMONARY DISEASE. > Interpreting Provider: Tomer Escalante MD on 04/09/2025 3:25 PM Narrative 04/09/2025 3:25 PM CDT PROCEDURE: XR CHEST 2VW, DATE/TIME OF EXAM: 04/09/2025 3:20 PM, LOCATION [facility] INDICATION: E66.01: Morbid obesity (HCC) Z01.818: Pre-op evaluation G47.30: Sleep apnea, unspecified type I10: Hypertension, unspecified type ADDITIONAL CLINICAL INFORMATION: Ordering Provider Reason For Exam: Technologist Note: Additional: COMPARISON: None. CHEST - PA AND LATERAL VIEWS INDICATION: 29 years old complaining of E66.01: Morbid obesity (HCC) Z01.818: Pre-op evaluation G47.30: Sleep apnea, unspecified type I10: Hypertension, unspecified type FINDINGS: PA and lateral views of the chest, 1530 hours, reviewed without the benefit of prior studies.. The heart size and pulmonary vasculature are normal. There is no infiltrate, mass, pneumothorax or pleural effusion. The midline and overlying soft tissue structures are normal. Procedure Note Tomer Escalante MD - 04/09/2025 PROCEDURE: XR CHEST 2VW, DATE/TIME OF EXAM: 04/09/2025 3:20 PM, LOCATION [facility] INDICATION: E66.01: Morbid obesity (HCC) Z01.818: Pre-op evaluation G47.30: Sleep apnea, unspecified type I10: Hypertension, unspecified type ADDITIONAL CLINICAL INFORMATION: Ordering Provider Reason For Exam: Technologist Note: Additional: COMPARISON: None. CHEST - PA AND LATERAL VIEWS INDICATION: 29 years old complaining of E66.01: Morbid obesity (HCC) Z01.818: Pre-op evaluation G47.30: Sleep apnea, unspecified type I10: Hypertension, unspecified type FINDINGS: PA and lateral views of the chest, 1530 hours, reviewedwithout the benefit of prior studies.. The heart size and pulmonary vasculature are normal. There is no infiltrate, mass, pneumothorax or pleural effusion. The midline and overlying soft tissue structures are normal. IMPRESSION: NO RADIOGRAPHIC EVIDENCE OF ACTIVE CARDIAC/PULMONARYDISEASE. > Interpreting Provider: Tomer Escalante MD on 04/09/2025 3:25 PM Hayley Arteaga TRAIL MAINTENANCE WORKER-CHIEF DESIGN BRANCH DIAGNOSTIC IMAGING ORDER AGUSTIN Final Result * PTH INTACT+CALCIUM (04/09/2025 3:02 PM CDT) PTH Intact 36 15 - 65 pg/mL 04/12/2025 9:44 AM CDT [facility] ([facility]) Calcium 9.5 8.6 - 10.0 mg/dL 04/12/2025 9:44 AM CDT [facility] ([facility]) Comment: Performed By: [facility] [address] [place] [address] Utility Manager: Isaak Russell MD, PhD CLIA Number: [id number] Blood BLOOD SPECIMEN / Unknown Lab Venipuncture / Unknown 04/09/2025 3:02 PM CDT 04/09/2025 3:15 PM CDT Hayley Arteaga APRN-CHIEF DESIGN BRANCH LAB - CHEMISTRY ORDERABL ES Final Result Performing Organization Address [facility]/ZIP Co de Phone Number [facility]) [address] [place] [address] * VITAMIN B1 (04/09/2025 3:02 PM CDT) [facility] Vitamin B1 Whole Blood 135 70 - 180 nmol/L 04/13/2025 3:16 PM CDT [facility] ([facility]) Comment: INTERPRETIVE INFORMATION: Vitamin B1, Whole Blood This assay measures the concentration of thiamine diphosphate (TDP), the primary active form of vitamin B1. Approximately 90 percent of vitamin B1 present in whole blood is TDP. Thiamine and thiamine monophosphate, which comprise the remaining 10 percent, are not measured. This test was developed and its performance characteristics determined by [facility]. It has not been cleared or approved by the US Food and Drug Administration. This test was performed in a CLIA certified laboratory and is intended for clinical purposes. Performed By: [facility] [address] [place] [address] Utility Manager: Isaak Russell MD, PhD CLIA Number: [id number] Blood BLOOD SPECIMEN / Unknown Lab Venipuncture / Unknown 04/09/2025 3:02 PM CDT 04/09/2025 3:15 PM CDT Hayley Arteaga APRN-CHIEF DESIGN BRANCH LAB - CHEMISTRY ORDERABL ES Final Result Performing Organization Address City/[facility]/ZIP Co de Phone Number [facility] ([facility]) [address] [place] [id number] * (ABNORMAL) HEMOGLOBIN A1C (04/09/2025 3:02 PM CDT) Hemoglobin A1c 5.7(H) 4.2 - 5.6 % 04/09/2025 3:31 PM CDT [facility] Estimated Average Glucose 117 mg/dL 04/09/2025 3:31 PM CDT [facility] Blood BLOOD SPECIMEN / Unknown Lab Venipuncture / Unknown 04/09/2025 3:02 PM CDT 04/09/2025 3:15 PM CDT Narrative [facility] - 04/09/2025 3:31 PM CDT HbA1c Interpretation: Normal: < 5.7% Pre-diabetes: 5.7-6.4% Diabetes: Equal to or greater than 6.5% Test results diagnostic of diabetes should be repeated for confirmation. Treatment target values recommended by ADA and other clinical organizations should be used to evaluate metabolic control in patients. This test should not replace glucose testing for patients with Type 1 diabetes, pediatric patients, or women. Falsely low HbA1c results may be observed in patients with clinical conditions that shorten erythrocyte life span or decrease mean erythrocyte age such as the presence of unstable hemoglobin variants, elevated hemoglobin F level or other causes of hemolytic anemia. HbA1c may not accurately reflect glycemic control when clinical conditions that affect erythrocyte survival are present. Severe Iron deficiency anemia may yield falsely high results. Hemoglobin A1c assay should not be used to diagnose or monitor diabetes in patients with malignancy, recent blood transfusion, chronic kidney or liver disease. This method may yield falsely low results when hemoglobin (HbF) exceeds 5% in the specimen. The Mora Alinity assay for the measurement of HbA1c is a National Glycohemoglobin Standardization Program (NGSP) certified method. us Hayley Arteaga TRAIL MAINTENANCE WORKER-CHIEF DESIGN BRANCH LAB - CHEMISTRY ORDERABL ES Final Result [facility] [address] [place], [place] [address] * (ABNORMAL) VITAMIN D 25-HYDROXY (04/09/2025 3:02 PM CDT) Vitamin D, 25 Hydroxy 22.5(L) 30 - 80 ng/mL 04/09/2025 3:58 PM CDT [facility] Blood BLOOD SPECIMEN / Unknown Lab Venipuncture / Unknown 04/09/2025 3:02 PM CDT 04/09/2025 3:15 PM CDT Narrative [facility] - 04/09/2025 3:58 PM CDT Reference Values: The recommendation for 25-Hydroxy Vitamin D clinical decision points are as follows: Deficient < 20.0 ng/mL Insufficient 20.0-29.9 ng/mL Sufficient 30.0-100.0 ng/mL Potential Toxicity >100 ng/mL Reference: The Endocrine Society Clinical Practice Guidelines. 2011 If the 25-Hydroxy Vitamin D results are inconsistent with clinical evidence, it is recommended that follow-up testing using a method such as LC-MS/MS be performed to confirm the result. Hayley Arteaga [facility]NWE[facility] LAB - CHEMISTRY ORDERABL ES Final Result Performing Organization Address [facility] de Phone Number [facility] [address] [place] [address] * (ABNORMAL) PT PTT PANEL (04/09/2025 3:02 PM CDT) PT 12.7 11.3 - 14.8 sec 04/09/2025 3:31 PM CDT [facility] INR 0.96(L) 2 - 3 04/09/2025 3:31 PM CDT [facility] PTT 31.9 23.0 - 38.4 sec 04/09/2025 3:31 PM CDT [facility] Blood BLOOD SPECIMEN / Unknown Lab Venipuncture / Unknown 04/09/2025 3:02 PM CDT 04/09/2025 3:15 PM CDT Narrative [facility] - 04/09/2025 3:31 PM CDT Recommended therapeutic INR ranges for Oral Anticoagulant Therapy: 2.0-3.0 For prevention of Thrombosis or Embolism and treatment of Venous Thrombosis. 2.5- 3.5 for prevention of Recurrent Embolism or treatment of patients with Mechanical Prosthetic Heart Valves. Hayley Arteaga TRAIL MAINTENANCE WORKERWESTOVER [facility] LAB - COAGULATION ORDERA BLES Final Result Performing Organization Address [facility] Co de Phone Number [facility] [address] [place], [place] [id number] [place] [address] * CBC WITH DIFFERENTIAL (04/09/2025 3:02 PM CDT) [facility] WBC 9.8 4.0 - 10.7 x10E9/L 04/09/2025 3:18 PM CDT [facility] RBC Count 4.30 3.90 - 5.20 x10E12/L 04/09/2025 3:18 PM CDT [facility] Hemoglobin 12.2 11.9 - 15.8 g/dL 04/09/2025 3:18 PM CDT [facility] Hematocrit 38.2 34.8 - 46.1 % 04/09/2025 3:18 PM CDT [facility] MCV 88.8 80.0 - 98.0 fL 04/09/2025 3:18 PM CDT [facility] MCH 28.4 26.7 - 33.6 pg 04/09/2025 3:18 PM CDT [facility] MCHC 31.9 31.7 - 36.3 g/dL 04/09/2025 3:18 PM CDT [facility] RDW-CV 14.8 11.3 - 14.8 % 04/09/2025 3:18 PM CDT [facility] Platelet Count 403 150 - 420 x10E9/L 04/09/2025 3:18 PM CDT [facility] MPV 9.6 7.8 - 11.4 fL 04/09/2025 3:18 PM CDT [facility] Neutrophil % 55.3 41.0 - 74.0 % 04/09/2025 3:18 PM CDT [facility] Lymphocyte % 37.4 17.0 - 47.0 % 04/09/2025 3:18 PM CDT [facility] Monocyte % 6.0 3.0 - 11.0 % 04/09/2025 3:18 PM CDT [facility] LABORATORY Eosinophil % 0.8 0.0 - 7.0 % 04/09/2025 3:18 PM CDT [facility] Basophil % 0.3 0.0 - 1.6 % 04/09/2025 3:18 PM CDT [facility] Immature Granulocytes % 0.2 0.0 - 1.0 % 04/09/2025 3:18 PM CDT [facility] Neutrophil Absolute 5.44 1.60 - 7.50 x10E9/L 04/09/2025 3:18 PM CDT [facility] Lymphocyte Absolute 3.68 1.00 - 4.40 x10E9/L 04/09/2025 3:18 PM CDT [facility] Monocyte Absolute 0.59 0.15 - 1.00 x10E9/L 04/09/2025 3:18 PM CDT [facility] Eosinophil Absolute 0.08 0.00 - 0.60 x10E9/L 04/09/2025 3:18 PM CDT [facility] Basophil Absolute 0.03 0.00 - 0.13 x10E9/L 04/09/2025 3:18 PM CDT [facility] Blood BLOOD SPECIMEN / Unknown Lab Venipuncture / Unknown 04/09/2025 3:02 PM CDT 04/09/2025 3:15 PM CDT us Hayley Arteaga TRAIL MAINTENANCE WORKER-[employer] LAB - HEMATOLOGY ORDERAB LES Final Result Performing Organization Address [facility] Co de Phone Number [facility] [address] * COMPREHENSIVE METABOLIC PANEL (04/09/2025 3:02 PM CDT) [facility] Glucose 90 70 - 125 mg/dL 04/09/2025 3:36 PM CDT [facility] Sodium 140 136 - 145 mmol/L 04/09/2025 3:36 PM CDT [facility] Potassium 3.8 3.4 - 5.1 mmol/L 04/09/2025 3:36 PM CDT [facility] Chloride 106 98 - 107 mmol/L 04/09/2025 3:36 PM CDT [facility] CO2 25 22 - 29 mmol/L 04/09/2025 3:36 PM CDT [facility] Calcium 9.52 8.4 - 10.2 mg/dL 04/09/2025 3:36 PM CDT [facility] Anion Gap 9 6 - 16 mmol/L 04/09/2025 3:36 PM CDT [facility] BUN 13.1 9.8 - 20.1 mg/dL 04/09/2025 3:36 PM CDT [facility] Creatinine 0.62 0.57 - 1.11 mg/dL 04/09/2025 3:36 PM CDT [facility] Alkaline Phosphatase 74 40 - 150 U/L 04/09/2025 3:36 PM CDT [facility] ALT 25 7 - 30 U/L 04/09/2025 3:36 PM CDT [facility] AST 24 5 - 34 U/L 04/09/2025 3:36 PM CDT [facility] Protein Total 7.4 6.4 - 8.3 gm/dL 04/09/2025 3:36 PM CDT [facility] Albumin 3.6 3.1 - 4.5 gm/dL 04/09/2025 3:36 PM CDT [facility] Globulin Total 3.8 2.6 - 4.0 gm/dL 04/09/2025 3:36 PM CDT [facility] Albumin/Globulin Ratio 0.9 0.9 - 1.6 04/09/2025 3:36 PM CDT [facility] Bilirubin Total 0.4 0.2 - 1.2 mg/dL 04/09/2025 3:36 PM CDT [facility] eGFR >90 >90 mL/min/1.7 3m2 04/09/2025 3:36 PM CDT [facility] Comment:Estimated Glomerular Filtration Rate (eGFR) calculated using the CKD-EPI Creatinine Equation (2020), per the National Kidney Foundation and [place] [employer]ph[employer] recommendations. Blood BLOOD SPECIMEN / Unknown Lab Venipuncture / Unknown 04/09/2025 3:02 PM CDT 04/09/2025 3:15 PM CDT Hayley Arteaga TRAIL MAINTENANCE WORKER-[employer] LAB - CHEMISTRY ORDERABL ES Final Result Performing Organization Address City/State/[facility] Co de Phone Number [facility] [address] * MAGNESIUM BLOOD (04/09/2025 3:02 PM CDT) Magnesium 1.7 1.6 - 2.6 mg/dL 04/09/2025 3:36 PM CDT [facility] Blood BLOOD SPECIMEN / Unknown Lab Venipuncture / Unknown 04/09/2025 3:02 PM CDT 04/09/2025 3:15 PM CDT us Hayley Arteaga TRAIL MAINTENANCE [facility] - CHEMISTRY ORDERABL ES Final Result Performing Organization Address [facility] de Phone Number [facility] [address] [place] [address] * (ABNORMAL) VITAMIN B12 FOLATE PANEL (04/09/2025 3:02 PM CDT) Pathologist [facility] Vitamin B12 401 213 - 816 pg/mL 04/09/2025 4:11 PM CDT [facility] Folate 6.6(L) 7.0 - 31.4 ng/mL 04/09/2025 4:11 PM CDT [facility] Blood BLOOD SPECIMEN / Unknown Lab Venipuncture / Unknown 04/09/2025 3:02 PM CDT 04/09/2025 3:14 PM CDT Hayley Arteaga TRAIL MAINTENANCE WORKER-[facility] - CHEMISTRY ORDERABL ES Final Result Performing Organization Address [facility] de Phone Number [facility] [address] [place] [address] * TSH (04/09/2025 3:02 PM CDT) [facility] TSH 1.7662 0.35 - 4.94 uIU/mL 04/09/2025 3:57 PM CDT [facility] Blood BLOOD SPECIMEN / Unknown Lab Venipuncture / Unknown 04/09/2025 3:02 PM CDT 04/09/2025 3:15 PM CDT Hayley Arteaga TRAIL MAINTENANCE [facility] - CHEMISTRY ORDERABL ES Final Result Performing Organization Address City/[facility] Co de Phone Number [facility] [address] [place] [address] * IRON + TRANSFERRIN PANEL (04/09/2025 3:02 PM CDT) Pathologist [facility] Iron 82 50 - 170 ug/dL 04/09/2025 3:36 PM CDT [facility] Transferrin 311 180 - 382 mg/dL 04/09/2025 3:36 PM CDT [facility] TIBC Calculated 389 261 - 497 ug/dL 04/09/2025 3:36 PM CDT [facility] Iron Saturation % 21 11 - 45 % 04/09/2025 3:36 PM CDT [facility] Blood BLOOD SPECIMEN / Unknown Lab Venipuncture / Unknown 04/09/2025 3:02 PM CDT 04/09/2025 3:15 PM CDT Hayley Arteaga TRAIL MAINTENANCE WORKER-[employer] LAB - CHEMISTRY ORDERABL ES Final Result Performing Organization Address [facility]/ZIP Co de Phone Number [facility] [address] [place] [address] * FERRITIN (04/09/2025 3:02 PM CDT) Ferritin 39 5 - 204 ng/mL 04/09/2025 3:57 PM CDT [facility] Blood BLOOD SPECIMEN / Unknown Lab Venipuncture / Unknown 04/09/2025 3:02 PM CDT 04/09/2025 3:15 PM CDT Hayley Arteaga APRN-[facility] - CHEMISTRY ORDERABL ES Final Result Performing Organization Address [facility] de Phone Number [facility] [address] [place] [address] * LIPID PROFILE (04/09/2025 3:02 PM CDT) Cholesterol 160 <200 mg/dL 04/09/2025 3:36 PM CDT [facility] Triglycerides 136 <150 mg/dL 04/09/2025 3:36 PM CDT [facility] HDL Cholesterol 50 >40 mg/dL 3:36 PM CDT [facility] Chol HDL Ratio 3.2 1.0 - 6.0 04/09/2025 3:36 PM CDT [facility] LDL Calculated 83 65 - 130 mg/dL 04/09/2025 3:36 PM CDT [facility] Comment:LDL is calculated us ing the Friedewald equation. VLDL Calculated 27 <=30 mg/dL 3:36 PM CDT [facility] Blood BLOOD SPECIMEN / Unknown Lab Venipuncture / Unknown 04/09/2025 3:02 PM CDT 04/09/2025 3:15 PM CDT Narrative [facility] - 04/09/2025 3:36 PM CDT Lipid Profile Comment: CHOLESTEROL LEVEL..................CLINICAL INTERPRETATION LESS THAN 200 MG/DL..............................DESIRABLE 200-239 MG/DL..............................BORDERLINE HIGH GREATER THAN 240 MG/DL................................HIGH LDL-CHOLESTEROL LEVEL..............CLINICAL INTERPRETATION LESS THAN 100 MG/DL................................OPTIMAL 100-129 MG/DL.................................NEAR OPTIMAL GREATER THAN 160 MG/DL...........................HIGH RISK HDL RISK LEVEL GREATER THEN 60 MG/DL............................DECREASED 40-60 MG/DL........................................AVERAGE LESS THAN 40 MG/DL...............................INCREASED TRIGLYCERIDE LEVEL..................CLINICAL INTERPRETATION LESS THAN 150 MG/DL...............................DESIRABLE 150-199 MG/DL...............................BORDERLINE HIGH 200-499 MG/DL..........................................HIGH GREATER THAN 500..................................VERY HIGH THE NATIONAL CHOLESTEROL EDUCATION PROGRAM HAS SET THE ABOVE GUIDELINES (REFERANCE VALUES) FOR CHOLESTEROL AND HDL. RISK ASSOCIATED WITH CHOLESTEROL/HDL RATIOS RISK....................MALE RATIO.............FEMALE RATIO 1/2 AVERAGE.................<3.4.......................<3.3 LOW RISK.................... 4.0 ...................... 3.8 AVERAGE..................... 5.0 ...................... 4.5 2X AVERAGE.................. 9.5 ...................... 7.0 3X AVERAGE...................>23........................>11 us Hayley Arteaga TRAIL MAINTENANCE WORKER-CHIE[employer] LAB - CHEMISTRY ORDERABL ES Final Result [facility] [address] [place] [address], [facility] from Last 3 Months Insurance MEDICAID - [place] [facility] MEDICAID - OUT OF [facility] [address] [place] [address] [id number] MEDICAID - [place] Care Teams Radiologic Technology Instructor Relationship Specialty Start Date End Date Edwar Benavides APRN-[facility] [address] [address] PCP - General Nurse Practitioner 05/01/25
--- OUTSIDE RECORDS SUMMARY | 2025-06-02 15:19 | XMS_ITS | Encounter Summary ---
Author Organization [facility] Health Address [address] [facility] [place] [address] Care Team Providers Care Viscosity Worker Name Role Phone Amy Mcqueen MD Primary Care Provider [phone] Edwar Benavides Primary Care Pro vider Encounter Details Date Type Department Care Team (Late st Contact Info) Description 04/10/2025 Results Follow-Up [facility] Management [facility] [address] [place] [phone] Hayley Arteaga APRN-PENS AND PENCILS DIPPER [address] [place] [address] Social History Tobacco Use Types Packs/Day Years Used Date Smoking Tobacco: Never Smokeless Tobacco: Never Alcohol Use Standard Drinks/Week Comments No 0 (1 standard drink = 0.6 oz pur e alcohol) PHQ-2 Answer Date Recorded Patient Health Questionnaire-2 Score 0 04/09/2025 Comments No Sex and Gender Information Value Date Recorded Sex Assigned at Not on file Legal Sex Female 1:08 PM FLIGHT OPERATION COORDINATOR Gender Identity Not on file Sexual Orientation Not on file documented as of this encounter Progress Notes * Stephanie Stafford RD/ANNA MARIE - 04/10/2025 2:11 PM CDT Pt made aware of vit D and folate lab results. Pt reports she started daily weekly D2 Rx per PCP 3 weeks ago. Recommended pt start 1000 mcg folic acid daily. Pt v/u. documented in this encounter Plan of Treatment Upcoming Encounters Date Type Department Care Team (Late st Contact Info) Description 06/18/2025 1:15 PM CDT Office Visit [facility] [address] [place] [phone] Elizabeth Gonzales MD [address] [place] [phone] 06/19/2025 12:30 PM CDT Video Visit [facility] [address] [place] [phone] Scheduled Orders Name Type Priority Associated Diagnoses Orde r Schedule VITAMIN D 25-HYDROXY Lab Routine Vitamin D deficiency 1 Occurrences starting 04/10/2025 until 05/11/2026 FOLATE Lab Routine Folate deficiency 1 Occurrences starting 04/10/2025 until 04/10/2026 documented as of this encounter Visit Diagnoses Diagnosis Folate deficiency- Primary Other B-complex deficiencies Vitamin D deficiency documented in this encounter Care Teams Viscosity Worker Relationship Specialty Start Date End Date Amy Mcqueen MD [address] [place] [phone] PCP - General 10/14/18 04/30/25 Edwar Benavides APRN-PENS AND PENCILS DIPPER [address] [place] [id number] PCP - General Nurse Practitioner 05/01/25 documented as of this encounter
== END 2025-06-02 15:42 | disposition home or self-care (01) ==
PROVIDERS: Emergency Provider Nurse Practitioner Family
DX: K04.7 Periapical abscess without sinus (principal); Z79.899 Other long term (current) drug therapy; Z79.84 Long term (current) use of oral hypoglycemic drugs
CPT/HCPCS: 99213; G0463